=== PATIENT | male | born 1930 | race Caucasian/White ===

== ENCOUNTER 2016-05-02 13:51 | Observation (INO) | payer OTHER ==
[~2016-05-02] VITALS: Ht 170.2 cm; Wt 69.1 kg
[~2016-05-02 13:51] MED LIST: ADVAIR HFA120 INHALA IH; ALBUTEROL2.5 MG/3 M IH; ASPIR-TRIN325 M1 PO; ATROVENT 00.5 MG/2.5 AEROSOL; ATROVENT 00.5 MG/2.5 IH; AUGMENTIN875 MG PO; AZITHROMYCIN250 MG PO; AZITHROMYCIN500 M1 PO; CALCIUM 600 +1 EAC3 PO; CEFTIN250 MG PO; DUONEB 2.5-0.5 M3 ML AEROSOL; Diflucan PO; FLONASE16 G1 BOTH NARES; FLONASE16 G1 NS; FLOVENT 11120 INHALA IH; FLUCONAZOLE100 MG PO; Flagyl PO; Flonase BOTH NARES; Flora-Q,Risaquad PO; GABAPENTIN100 MG PO; LEVOFLOXACIN750 MG PO; MEDROL DOSEPAK4 MG PO; MONTELUKAST SOD10 MG PO; NEXIUM20 MG PO; NEXIUM40 MG PO; NIZORAL 2% CREA15 GM TP; OSTEO BI-FLEX1 EAC1 PO; OXYCODONE HCL5 MG PO; PANTOPRAZOLE SO40 MG PO; PREDNISONE10 MG PO; PREDNISONE5 MG PO; PREDNISONE50 MG PO; PROAIR HFA8.5 GM IH; PROTONIX40 MG PO; PROVENTIL,2.5 MG/3 M IH; Questran PO; SKELAXIN800 MG PO; SPIRIVA RESPIMAT4 GM IH; Tums,OsCal PO; Vancocin Oral Soluti PO; ZITHROMAX Z-PA250 MG PO; [UNRECOGNIZED DRUG - OTHER] PO
[2016-05-02 15:27] LABS: HEMATOCRIT 42.5 % (38.0-50.0); MCHC 32.9 G/DL (30.0-36.0); RBC DIS.WIDTH-CV 13.7 % (11.8-14.6); RBC DIS.WIDTH-SD 44.8 % (39-53); RED BLOOD COUNT 4.67 M/uL (4.00-5.50); WHITE BLOOD COUNT 7.2 K/uL (4.1-10.2)
[2016-05-02 15:32] LABS: MEAN PLAT.VOLUME 10.4 uM^3 (9.0-12.4)
[2016-05-02 15:33] LABS: PLATELET COUNT 307 K/uL (156-360)
[2016-05-02 15:37] LABS: CHLORIDE 104 mEq/L (99-109); POTASSIUM 4.4 mEq/L (3.7-5.4); SODIUM 137 mEq/L (136-147)
[2016-05-02 15:39] LABS: GLUCOSE 90 mg/dL (70-99)
[2016-05-02 15:40] LABS: ANION GAP 11 MEQ/L (2-14)
[2016-05-02 15:43] LABS: GFR ESTIMATE (CALCULATED) > 59 mL/min/
[2016-05-02 15:44] LABS: UREA NITROGEN (BUN) 13 mg/dL (9-23)
[2016-05-02 15:49] LABS: TROP-I INTERPRETATION NEGATIVE; TROPONIN-I 0.04 ng/mL (0.0-0.30)
[2016-05-02] MEDS ORDERED: OMEPRAZOLE40 M1 PO (18:11)
[2016-05-02 18:54] LABS: TROP-I INTERPRETATION NEGATIVE; TROPONIN-I 0.04 ng/mL (0.0-0.30)
[2016-05-02 20:45] VITALS: BP 129/81
[2016-05-03 00:14] VITALS: BP 114/68
[2016-05-03 01:44] LABS: TROP-I INTERPRETATION NEGATIVE; TROPONIN-I 0.02 ng/mL (0.0-0.30)
[2016-05-03 04:53] VITALS: BP 90/54
[2016-05-03 07:59] LABS: TROP-I INTERPRETATION NEGATIVE; TROPONIN-I < 0.01 ng/mL (0.0-0.30)
[2016-05-03 08:07] VITALS: BP 111/54
[2016-05-03] MEDS ORDERED: ZITHROMAX500 MG PO (10:19)
[2016-05-03] MEDS ORDERED: PREDNISONE10 MG PO (10:25)
[2016-05-03] MEDS ORDERED: OMEPRAZOLE40 M1 PO (11:15)
== END 2016-05-03 13:00 | disposition home or self-care (01) ==
LOC: EME 13:51 → 5WEST 17:55 → EDOF 17:55 → 5WEST 20:21
PROVIDERS: Hospitalist
DX: R07.89 Other chest pain (principal); J20.9 Acute bronchitis, unspecified; J45.901 Unspecified asthma with (acute) exacerbation; R94.31 Abnormal electrocardiogram [ECG] [EKG]; M19.90 Unspecified osteoarthritis, unspecified site; K21.9 Gastro-esophageal reflux disease without esophagitis; I48.91 Unspecified atrial fibrillation; G89.29 Other chronic pain; M54.40 Lumbago with sciatica, unspecified side; Z82.49 Family history of ischemic heart disease and other diseases of the circulatory system; Z80.3 Family history of malignant neoplasm of breast
CPT/HCPCS: 71020; 80048; 81003; 84484; 85027; 93005; 94640; 94640 76; 94644; 99202; 99281; 99285; G0378; J1644; J2930

== ENCOUNTER 2016-06-14 17:48 | Observation (INO) | payer OTHER ==
[~2016-06-14] VITALS: Ht 170.2 cm; Wt 68.2 kg
[~2016-06-14 17:48] MED LIST changes: +OMEPRAZOLE40 M1 PO; +ZITHROMAX500 MG PO
[2016-06-14 18:19] LABS: HEMATOCRIT 39.8 % (38.0-50.0); MCH 29.9 PG (29.0-34.0); MCHC 33.7 G/DL (30.0-36.0); MCV 88.8 FL (86-99); MEAN PLAT.VOLUME 10.4 uM^3 (9.0-12.4); PLATELET COUNT 253 K/uL (156-360); RBC DIS.WIDTH-CV 12.8 % (11.8-14.6); RBC DIS.WIDTH-SD 40.6 % (39-53); RED BLOOD COUNT 4.48 M/uL (4.00-5.50); WHITE BLOOD COUNT 8.8 K/uL (4.1-10.2)
[2016-06-14 18:34] LABS: CHLORIDE 106 mEq/L (99-109); POTASSIUM 3.8 mEq/L (3.7-5.4); SODIUM 139 mEq/L (136-147)
[2016-06-14 18:36] LABS: GLUCOSE 128 mg/dL (70-99)
[2016-06-14 18:37] LABS: ANION GAP 12 MEQ/L (2-14)
[2016-06-14 18:39] LABS: GFR ESTIMATE (CALCULATED) > 59 mL/min/
[2016-06-14 18:40] LABS: UREA NITROGEN (BUN) 16 mg/dL (9-23)
[2016-06-14 18:46] LABS: TROP-I INTERPRETATION NEGATIVE; TROPONIN-I 0.05 ng/mL (0.0-0.30)
[2016-06-14] MEDS ORDERED: VITAMIN D400 UNI1 PO (19:26)
[2016-06-14 21:41] LABS: HDL CHOLESTEROL 41 MG/DL (Desirable>=40); LDL CHOLESTEROL 118 mg/dL (Desirable<100); NON-HDL CHOLESTEROL 141 mg/dL (Desirable<160); SAMPLE HEMOLYSIS CHECK 0; SAMPLE ICTERIC CHECK 0; SAMPLE LIPEMIA CHECK 0; TOTAL CHOLESTEROL 182 mg/dL (Desirable<200); TRIGLYCERIDES 115 MG/DL (Normal: <150)
[2016-06-14 21:47] VITALS: BP 144/67
[2016-06-15] VITALS: BP 122/57
[2016-06-15 04:00] VITALS: BP 122/68
[2016-06-15 06:38] LABS: Estimated Average Glucose 128 mg/dL (70-123); HEMOGLOBIN A1c (GLYCOHEMOGLOB) 6.1 % HGB (Below 5.7)
[2016-06-15 07:44] VITALS: BP 144/66
[2016-06-15 12:05] VITALS: BP 126/60
[2016-06-15] MEDS ORDERED: LO-DOSE ASPIRIN81 M2 PO (15:38)
[2016-06-15] MEDS ORDERED: CLOPIDOGREL75 MG PO (15:38)
== END 2016-06-15 17:00 | disposition home or self-care (01) ==
LOC: EME 17:48 → EDOF 20:21 → 5WEST 21:14
PROVIDERS: Nurse Practitioner Family
DX: I65.21 Occlusion and stenosis of right carotid artery (principal); J44.1 Chronic obstructive pulmonary disease with (acute) exacerbation; I48.91 Unspecified atrial fibrillation; M54.16 Radiculopathy, lumbar region; J45.909 Unspecified asthma, uncomplicated; K21.9 Gastro-esophageal reflux disease without esophagitis; M19.90 Unspecified osteoarthritis, unspecified site
CPT/HCPCS: 70450; 70549; 70551; 71020; 80048; 80061; 83036; 84484; 85027; 93005; 93880; 99202; 99281; 99285; G0378

== ENCOUNTER 2016-06-20 08:07 | Observation (INO) | payer OTHER ==
[~2016-06-20] VITALS: Ht 170.2 cm; Wt 69.3 kg
[~2016-06-20 08:07] MED LIST changes: +CLOPIDOGREL75 MG PO; +LO-DOSE ASPIRIN81 M2 PO; +VITAMIN D400 UNI1 PO
[2016-06-20] MEDS ORDERED: ONDANSETRON HCL4 MG PO (08:31)
[2016-06-20] MEDS ORDERED: FLUCONAZOLE100 MG PO (08:31)
[2016-06-20 08:51] LABS: MCH 29.8 PG (29.0-34.0); MCHC 33.6 G/DL (30.0-36.0); MCV 88.8 FL (86-99); MEAN PLAT.VOLUME 10.2 uM^3 (9.0-12.4); PLATELET COUNT 237 K/uL (156-360); RBC DIS.WIDTH-CV 12.9 % (11.8-14.6); RBC DIS.WIDTH-SD 40.8 % (39-53); RED BLOOD COUNT 4.39 M/uL (4.00-5.50); WHITE BLOOD COUNT 6.6 K/uL (4.1-10.2)
[2016-06-20 08:57] LABS: BASOPHIL COUNT 0.1 K/uL (0-0.1); EOSINOPHIL (%) 26.6 % (0-5); EOSINOPHIL COUNT 1.8 K/uL (0-0.3); IMMATURE GRANULOCYTE (%) 0.2 % (0.0-0.7); IMMATURE GRANULOCYTE COUNT 0.1 K/uL; LYMPHOCYTE COUNT 1.2 K/uL (1.0-2.8); MONOCYTE (%) 13.4 % (3-12); MONOCYTE COUNT 0.9 K/uL (0-0.8); NEUTROPHIL (%) 40.3 % (45-76); NEUTROPHIL COUNT 2.7 K/uL (1.8-6.4)
[2016-06-20 09:00] LABS: INTER. NORMALIZED RATIO 1.1; PROTHROMBIN TIME 10.9 (9.2-11.2); PTT 28.4 (25-32)
[2016-06-20 09:01] LABS: CHLORIDE 106 mEq/L (99-109)
[2016-06-20 09:02] LABS: POTASSIUM 3.7 mEq/L (3.7-5.4); SODIUM 139 mEq/L (136-147)
[2016-06-20 09:03] LABS: GLUCOSE 115 mg/dL (70-99)
[2016-06-20 09:05] LABS: ANION GAP 9 MEQ/L (2-14)
[2016-06-20 09:07] LABS: GFR ESTIMATE (CALCULATED) > 59 mL/min/
[2016-06-20 09:08] LABS: UREA NITROGEN (BUN) 14 mg/dL (9-23)
[2016-06-20 09:11] LABS: TROP-I INTERPRETATION NEGATIVE; TROPONIN-I 0.04 ng/mL (0.0-0.30)
[2016-06-20] MEDS ORDERED: PLAVIX75 MG PO (10:59)
[2016-06-20] MEDS ORDERED: OMEPRAZOLE40 M1 PO (11:00)
[2016-06-20] MEDS ORDERED: PROAIR HFA8.5 GM IH (11:00)
[2016-06-20] MEDS ORDERED: ALLERGY RELIE15.8 ML BOTH NARES (11:01)
[2016-06-20] MEDS ORDERED: CALCIUM 500 +1 EACH PO (11:01)
[2016-06-20 13:08] VITALS: BP 149/68
[2016-06-20 16:10] VITALS: BP 121/56
[2016-06-20 18:23] LABS: TROP-I INTERPRETATION NEGATIVE; TROPONIN-I 0.06 ng/mL (0.0-0.30)
[2016-06-20 20:00] VITALS: BP 117/58
[2016-06-21] VITALS: BP 123/62
[2016-06-21 01:00] LABS: TROP-I INTERPRETATION NEGATIVE; TROPONIN-I 0.05 ng/mL (0.0-0.30)
[2016-06-21 04:38] VITALS: BP 114/64
[2016-06-21 07:24] VITALS: BP 137/80
[2016-06-21] MEDS ORDERED: GABAPENTIN100 MG PO (07:57)
== END 2016-06-21 09:22 | disposition home or self-care (01) ==
LOC: EME 08:07 → EDOF 11:01 → 5WEST 11:01 → EDOF 11:01 → 5WEST 13:15
PROVIDERS: Emergency Medicine; Hospitalist
DX: R20.2 Paresthesia of skin (principal); G62.9 Polyneuropathy, unspecified; I10 Essential (primary) hypertension; J45.909 Unspecified asthma, uncomplicated; Z66 Do not resuscitate; K21.9 Gastro-esophageal reflux disease without esophagitis; M62.838 Other muscle spasm; M54.16 Radiculopathy, lumbar region; I25.2 Old myocardial infarction; G89.29 Other chronic pain
CPT/HCPCS: 70450; 71010; 72141; 72148; 80048; 84484; 85025; 85610; 85730; 93005; 94640 76; 99202; 99281; 99285; G0378; J1170; J2930

== ENCOUNTER 2017-02-14 17:51 | Observation (INO) | payer OTHER ==
[~2017-02-14] VITALS: Ht 170.2 cm; Wt 74.4 kg
[~2017-02-14 17:51] MED LIST changes: +ALLERGY RELIE15.8 ML BOTH NARES; +CALCIUM 500 +1 EACH PO; +ONDANSETRON HCL4 MG PO; +PLAVIX75 MG PO
[2017-02-14 18:47] LABS: HEMATOCRIT 35.5 % (38.0-50.0); MCH 27.4 PG (29.0-34.0); MCHC 31.8 G/DL (30.0-36.0); MEAN PLAT.VOLUME 10.3 uM^3 (9.0-12.4); PLATELET COUNT 273 K/uL (156-360); RBC DIS.WIDTH-CV 14.8 % (11.8-14.6); RBC DIS.WIDTH-SD 47.2 % (39-53); RED BLOOD COUNT 4.13 M/uL (4.00-5.50)
[2017-02-14 19:11] LABS: CHLORIDE 100 mEq/L (99-109); POTASSIUM 4.2 mEq/L (3.7-5.4); SODIUM 137 mEq/L (136-147); TROP-I INTERPRETATION NEGATIVE; TROPONIN-I 0.04 ng/mL (0.0-0.30)
[2017-02-14 19:12] LABS: GLUCOSE 104 mg/dL (70-99)
[2017-02-14 19:14] LABS: ANION GAP 12 MEQ/L (2-14)
[2017-02-14 19:16] LABS: GFR ESTIMATE (CALCULATED) > 59 mL/min/
[2017-02-14 19:17] LABS: UREA NITROGEN (BUN) 22 mg/dL (9-23)
[2017-02-14 22:44] LABS: TOTAL BILIRUBIN 0.4 mg/dL (0.0-1.0)
[2017-02-14 22:45] LABS: ALKALINE PHOSPHATASE 86 IU/L (3-129)
[2017-02-14 22:47] LABS: DIRECT BILIRUBIN 0.2 mg/dL (0.0-0.3)
[2017-02-14 22:48] LABS: LIPASE 25 U/L (1.0-51.0)
[2017-02-15 03:12] VITALS: BP 135/65
[2017-02-15 05:47] LABS: TROP-I INTERPRETATION NEGATIVE; TROPONIN-I 0.05 ng/mL (0.0-0.30)
[2017-02-15 12:20] VITALS: BP 131/69
[2017-02-15] MEDS ORDERED: ADVAIR HFA120 INHALA IH (14:04)
[2017-02-15] MEDS ORDERED: OMEPRAZOLE40 M1 PO (14:04)
[2017-02-15] MEDS ORDERED: SINGULAIR10 MG PO (14:05)
[2017-02-15] MEDS ORDERED: GABAPENTIN100 MG PO (14:05)
[2017-02-15] MEDS ORDERED: VENTOLIN HFA18 GM IH (15:09)
[2017-02-15] MEDS ORDERED: PROTONIX40 MG PO (15:09)
== END 2017-02-15 15:53 | disposition home or self-care (01) ==
LOC: EME 17:51 → ENPENDDIS 02-15 → EDOF 02-15 01:16 → ENRESERV 02-15 01:19 → 5WEST 02-15 03:06
PROVIDERS: Physician Assistant Medical
DX: R07.89 Other chest pain (principal); R10.13 Epigastric pain; K29.60 Other gastritis without bleeding; J44.9 Chronic obstructive pulmonary disease, unspecified; I44.1 Atrioventricular block, second degree; I47.1 Supraventricular tachycardia; I49.3 Ventricular premature depolarization; I27.20 Pulmonary hypertension, unspecified; I10 Essential (primary) hypertension; E78.5 Hyperlipidemia, unspecified; N40.0 Benign prostatic hyperplasia without lower urinary tract symptoms; G62.9 Polyneuropathy, unspecified; K22.70 Barrett's esophagus without dysplasia; K44.9 Diaphragmatic hernia without obstruction or gangrene; K21.9 Gastro-esophageal reflux disease without esophagitis; K57.30 Diverticulosis of large intestine without perforation or abscess without bleeding; I65.29 Occlusion and stenosis of unspecified carotid artery; M46.92 Unspecified inflammatory spondylopathy, cervical region; M47.22 Other spondylosis with radiculopathy, cervical region; Z66 Do not resuscitate; Z87.828 Personal history of other (healed) physical injury and trauma; Z87.01 Personal history of pneumonia (recurrent); Z82.49 Family history of ischemic heart disease and other diseases of the circulatory system
CPT/HCPCS: 71020; 74176; 80048; 80076; 83690; 84484; 85027; 93005; 99281; 99285; C9113; G0378; J1644

== ENCOUNTER 2017-02-24 17:41 | Inpatient (IN) | payer OTHER ==
[~2017-02-24] VITALS: Ht 170.2 cm; Wt 74.2 kg
[~2017-02-24 17:41] MED LIST changes: +SINGULAIR10 MG PO; +VENTOLIN HFA18 GM IH
[2017-02-24 18:08] LABS: HEMATOCRIT 34.3 % (38.0-50.0); MCH 27.7 PG (29.0-34.0); MCHC 32.4 G/DL (30.0-36.0); MCV 85.5 FL (86-99); MEAN PLAT.VOLUME 11.1 uM^3 (9.0-12.4); PLATELET COUNT 237 K/uL (156-360); RBC DIS.WIDTH-CV 14.8 % (11.8-14.6); RBC DIS.WIDTH-SD 46.5 % (39-53); RED BLOOD COUNT 4.01 M/uL (4.00-5.50); WHITE BLOOD COUNT 8.9 K/uL (4.1-10.2)
[2017-02-24 18:16] LABS: CHLORIDE 102 mEq/L (99-109); INTER. NORMALIZED RATIO 1.3; POTASSIUM 4.2 mEq/L (3.7-5.4); PROTHROMBIN TIME 14.2 SEC (10.2-12.9)
[2017-02-24 18:17] LABS: SODIUM 139 mEq/L (136-147)
[2017-02-24 18:18] LABS: GLUCOSE 111 mg/dL (70-99)
[2017-02-24 18:19] LABS: PTT 30.8 SEC (25-37)
[2017-02-24 18:20] LABS: ANION GAP 11 MEQ/L (2-14)
[2017-02-24 18:22] LABS: GFR ESTIMATE (CALCULATED) > 59 mL/min/
[2017-02-24 18:23] LABS: UREA NITROGEN (BUN) 22 mg/dL (9-23)
[2017-02-24 18:28] LABS: TROP-I INTERPRETATION NEGATIVE; TROPONIN-I 0.04 ng/mL (0.0-0.30)
[2017-02-24] MEDS ORDERED: PROTONIX40 MG PO (20:01)
[2017-02-24] MEDS ORDERED: TYLENOL EXTRA500 MG PO (20:01)
[2017-02-24] MEDS ORDERED: ONE DAILY1 EAC3 PO (20:02)
[2017-02-24 21:01] LABS: TOTAL BILIRUBIN 0.5 mg/dL (0.0-1.0)
[2017-02-24 21:02] LABS: ALKALINE PHOSPHATASE 84 IU/L (3-129)
[2017-02-24 21:04] LABS: DIRECT BILIRUBIN 0.2 mg/dL (0.0-0.3)
[2017-02-24 21:05] LABS: LIPASE 27 U/L (1.0-51.0)
[2017-02-24 22:01] VITALS: BP 129/68
[2017-02-25] VITALS: BP 124/60
[2017-02-25 01:04] LABS: TROP-I INTERPRETATION NEGATIVE; TROPONIN-I 0.05 ng/mL (0.0-0.30)
[2017-02-25 06:46] LABS: HEMATOCRIT 34.9 % (38.0-50.0); MCH 28.2 PG (29.0-34.0); MCV 85.5 FL (86-99); MEAN PLAT.VOLUME 11.2 uM^3 (9.0-12.4); PLATELET COUNT 218 K/uL (156-360); RBC DIS.WIDTH-SD 46.7 % (39-53); RED BLOOD COUNT 4.08 M/uL (4.00-5.50); WHITE BLOOD COUNT 7.8 K/uL (4.1-10.2)
[2017-02-25 07:10] LABS: TROP-I INTERPRETATION NEGATIVE; TROPONIN-I 0.05 ng/mL (0.0-0.30)
[2017-02-25 07:14] LABS: ANION GAP 11 MEQ/L (2-14); CHLORIDE 101 MEQ/L (99-109); GFR ESTIMATE (CALCULATED) > 59 mL/min/; GLUCOSE 89 mg/dL (70-99); POTASSIUM 4.1 MEQ/L (3.7-5.4); SAMPLE HEMOLYSIS CHECK 0; SAMPLE ICTERIC CHECK 0; SAMPLE LIPEMIA CHECK 0; SODIUM 136 MEQ/L (136-147); UREA NITROGEN (BUN) 18 mg/dL (9-23)
[2017-02-25 09:08] VITALS: BP 118/59
[2017-02-25 13:08] VITALS: BP 116/70
[2017-02-25 16:29] VITALS: BP 106/52
[2017-02-25 19:00] VITALS: BP 112/71
[2017-02-26 00:25] VITALS: BP 112/60
[2017-02-26 04:30] VITALS: BP 108/67
[2017-02-26 08:55] VITALS: BP 135/60
[2017-02-26] MEDS ORDERED: FLAGYL500 MG PO (11:43)
[2017-02-26] MEDS ORDERED: CIPRO500 MG PO (11:45)
[2017-02-26 12:18] VITALS: BP 110/54
== END 2017-02-26 12:30 | disposition home or self-care (01) | DRG 392 ==
LOC: EME 17:41 → 5WEST 20:55 → EDOF 20:55 → ENRESERV 20:56 → 5WEST 21:51 → ENRESERV 02-25 12:57 → 5WEST 02-26 12:30
PROVIDERS: Emergency Medicine; Hospitalist
DX: K57.32 Diverticulitis of large intestine without perforation or abscess without bleeding (principal); J81.1 Chronic pulmonary edema; J84.9 Interstitial pulmonary disease, unspecified; I44.1 Atrioventricular block, second degree; I27.20 Pulmonary hypertension, unspecified; J44.9 Chronic obstructive pulmonary disease, unspecified; I10 Essential (primary) hypertension; E78.5 Hyperlipidemia, unspecified; I25.10 Atherosclerotic heart disease of native coronary artery without angina pectoris; K21.0 Gastro-esophageal reflux disease with esophagitis; K22.70 Barrett's esophagus without dysplasia; K44.9 Diaphragmatic hernia without obstruction or gangrene; Z87.01 Personal history of pneumonia (recurrent); Z87.19 Personal history of other diseases of the digestive system
CPT/HCPCS: 71020; 74174; 76705; 80048; 80076; 83690; 83880; 84484; 85027; 85610; 85730; 87493; 93005; 94640; 94640 76; 99202; 99281; 99285; G0378; J1644; J1940; J2270; J2543; J7050

== ENCOUNTER 2017-08-20 14:39 | Inpatient (IN) | payer OTHER ==
[~2017-08-20] VITALS: Ht 170.2 cm; Wt 68.9 kg
[~2017-08-20 14:39] MED LIST changes: +CIPRO500 MG PO; +FLAGYL500 MG PO; +ONE DAILY1 EAC3 PO; +TYLENOL EXTRA500 MG PO
[2017-08-20 16:13] LABS: HEMATOCRIT 35.1 % (38.0-50.0); HEMOGLOBIN 11.6 G/DL (12.5-16.6); MCH 27.3 PG (29.0-34.0); MCV 82.6 FL (86-99); PLATELET COUNT 261 K/uL (156-360); RBC DIS.WIDTH-CV 16.9 % (11.8-14.6); RBC DIS.WIDTH-SD 49.6 % (39-53); RED BLOOD COUNT 4.25 M/uL (4.00-5.50); WHITE BLOOD COUNT 7.5 K/uL (4.1-10.2)
[2017-08-20 16:25] LABS: ALBUMIN 3.4 g/dL (3.2-4.8); CHLORIDE 102 mEq/L (99-109); POTASSIUM 3.9 mEq/L (3.7-5.4); SODIUM 137 mEq/L (136-147)
[2017-08-20 16:27] LABS: GLUCOSE 103 mg/dL (70-99); TOTAL PROTEIN 6.7 g/dL (6.4-8.3)
[2017-08-20 16:29] LABS: TOTAL BILIRUBIN 2.6 mg/dL (0.0-1.0)
[2017-08-20 16:31] LABS: ALKALINE PHOSPHATASE 118 IU/L (3-129); CREATININE 0.9 mg/dL (0.6-1.3); GFR ESTIMATE (CALCULATED) > 59 mL/min/ (58.99-99999)
[2017-08-20 16:32] LABS: UREA NITROGEN (BUN) 19 mg/dL (9-23)
[2017-08-20 16:33] LABS: AST (GOT) 45 IU/L (2-34)
[2017-08-20 16:34] LABS: ALT (GPT) 38 IU/L (3-49); LIPASE 16 U/L (1.0-51.0)
[2017-08-20 16:35] LABS: TROP-I INTERPRETATION NEGATIVE; TROPONIN-I 0.05 ng/mL (0.0-0.30)
[2017-08-20 19:30] LABS: DIRECT BILIRUBIN 1.8 mg/dL (0.0-0.3)
[2017-08-20 20:35] LABS: APPEARANCE SL.HAZY ((CLEAR)); BILIRUBIN SMALL; BLOOD MODERATE; COLOR AMBER ((YELLOW)); GLUCOSE (STRIP) NEGATIVE; KETONES 5; LEUKOCYTES MODERATE; NITRITE NEGATIVE; PROTEIN (STRIP) >=500; SPECIFIC GRAVITY 1.032 (1.000-1.030)
[2017-08-20 20:52] LABS: BACTERIA RARE /HPF; EPITHELIAL CELLS RARE /HPF; HYALINE CASTS 0-5 /LPF; MUCUS 1+ /LPF; RED BLOOD CELLS 15-20 /HPF (0-5); WHITE BLOOD CELLS TNTC /HPF (0-5)
[2017-08-20 21:06] VITALS: BP 121/66
[2017-08-21 00:04] VITALS: BP 120/70
[2017-08-21 04:25] VITALS: BP 133/72
[2017-08-21 05:48] LABS: HEMATOCRIT 33.2 % (38.0-50.0); HEMOGLOBIN 10.7 G/DL (12.5-16.6); MCH 26.6 PG (29.0-34.0); MCHC 32.2 G/DL (30.0-36.0); MCV 82.6 FL (86-99); PLATELET COUNT 250 K/uL (156-360); RED BLOOD COUNT 4.02 M/uL (4.00-5.50)
[2017-08-21 06:19] LABS: ALBUMIN 2.8 G/DL (3.2-4.8); ALKALINE PHOSPHATASE 97 IU/L (3-129); ALT (GPT) 31 IU/L (3-49); AST (GOT) 40 IU/L (2-34); CHLORIDE 104 MEQ/L (99-109); CREATININE 0.8 MG/DL (0.6-1.3); GFR ESTIMATE (CALCULATED) > 59 mL/min/ (58.99-99999); GLUCOSE 84 mg/dL (70-99); POTASSIUM 4.2 MEQ/L (3.7-5.4); SODIUM 137 MEQ/L (136-147); TOTAL BILIRUBIN 1.8 MG/DL (0.0-1.0); TOTAL PROTEIN 5.3 G/DL (6.4-8.3); UREA NITROGEN (BUN) 20 mg/dL (9-23)
[2017-08-21 08:01] VITALS: BP 121/68
[2017-08-21] MEDS ORDERED: OMEPRAZOLE40 M1 PO (11:47)
[2017-08-21] MEDS ORDERED: VENTOLIN HFA18 GM IH (11:48)
[2017-08-21] MEDS ORDERED: ONE DAILY1 EAC3 PO (11:49)
[2017-08-21] MEDS ORDERED: LO-DOSE ASPIRIN81 M1 PO (11:49)
[2017-08-21] MEDS ORDERED: ADVAIR HFA120 INHALA IH (11:49)
[2017-08-21 11:53] VITALS: BP 125/73
[2017-08-21 15:11] LABS: TROP-I INTERPRETATION NEGATIVE; TROPONIN-I 0.04 ng/mL (0.0-0.30)
[2017-08-21 15:58] VITALS: BP 119/64
[2017-08-21 19:39] VITALS: BP 120/72
[2017-08-22 00:02] VITALS: BP 115/59
[2017-08-22 03:59] VITALS: BP 121/74
[2017-08-22 06:09] LABS: BASOPHIL (%) 0.7 % (0-1); BASOPHIL COUNT 0.1 K/uL (0-0.1); EOSINOPHIL (%) 1.4 % (0-5); EOSINOPHIL COUNT 0.1 K/uL (0-0.3); HEMATOCRIT 31.8 % (38.0-50.0); HEMOGLOBIN 10.3 G/DL (12.5-16.6); IMMATURE GRANULOCYTE (%) 0.7 % (0.0-0.7); LYMPHOCYTE (%) 9.6 % (15-42); LYMPHOCYTE COUNT 0.7 K/uL (1.0-2.8); MCH 26.8 PG (29.0-34.0); MCHC 32.4 G/DL (30.0-36.0); MCV 82.8 FL (86-99); MONOCYTE (%) 16.1 % (3-12); MONOCYTE COUNT 1.1 K/uL (0-0.8); NEUTROPHIL (%) 71.5 % (45-76); PLATELET COUNT 272 K/uL (156-360); RBC DIS.WIDTH-CV 16.9 % (11.8-14.6); RBC DIS.WIDTH-SD 49.1 % (39-53); RED BLOOD COUNT 3.84 M/uL (4.00-5.50)
[2017-08-22 06:28] LABS: CHLORIDE 100 MEQ/L (99-109); GFR ESTIMATE (CALCULATED) > 59 mL/min/ (58.99-99999); GLUCOSE 98 mg/dL (70-99); MAGNESIUM 1.9 mg/dl (1.3-2.7); POTASSIUM 3.7 MEQ/L (3.7-5.4); SODIUM 137 MEQ/L (136-147); UREA NITROGEN (BUN) 20 mg/dL (9-23)
[2017-08-22 07:11] VITALS: BP 124/68
[2017-08-22 12:02] VITALS: BP 128/72
[2017-08-22 19:49] VITALS: BP 111/57
[2017-08-22 21:32] VITALS: BP 192/89
[2017-08-23 00:37] VITALS: BP 92/55
[2017-08-23 03:30] VITALS: BP 102/56
[2017-08-23 06:07] LABS: BASOPHIL (%) 0.7 % (0-1); BASOPHIL COUNT 0.1 K/uL (0-0.1); EOSINOPHIL (%) 4.1 % (0-5); EOSINOPHIL COUNT 0.3 K/uL (0-0.3); HEMATOCRIT 31.5 % (38.0-50.0); HEMOGLOBIN 10.4 G/DL (12.5-16.6); IMMATURE GRANULOCYTE (%) 0.4 % (0.0-0.7); LYMPHOCYTE (%) 9.5 % (15-42); LYMPHOCYTE COUNT 0.7 K/uL (1.0-2.8); MCH 26.9 PG (29.0-34.0); MCV 81.4 FL (86-99); MONOCYTE (%) 14.9 % (3-12); MONOCYTE COUNT 1.1 K/uL (0-0.8); NEUTROPHIL (%) 70.4 % (45-76); NEUTROPHIL COUNT 5.4 K/uL (1.8-6.4); PLATELET COUNT 279 K/uL (156-360); RED BLOOD COUNT 3.87 M/uL (4.00-5.50); WHITE BLOOD COUNT 7.6 K/uL (4.1-10.2)
[2017-08-23 06:12] LABS: CHLORIDE 97 MEQ/L (99-109); GFR ESTIMATE (CALCULATED) > 59 mL/min/ (58.99-99999); GLUCOSE 94 mg/dL (70-99); POTASSIUM 4.1 MEQ/L (3.7-5.4); SODIUM 135 MEQ/L (136-147); UREA NITROGEN (BUN) 21 mg/dL (9-23)
[2017-08-23 08:16] VITALS: BP 118/55
[2017-08-23 15:49] VITALS: BP 99/50
[2017-08-23 19:38] VITALS: BP 113/61
[2017-08-23 23:27] VITALS: BP 110/51
[2017-08-24 01:49] LABS: C DIFF TOXIN NEGATIVE (NEGATIVE)
[2017-08-24 04:16] VITALS: BP 116/76
[2017-08-24 07:47] VITALS: BP 135/59
[2017-08-24 12:13] VITALS: BP 133/62
[2017-08-24 15:06] LABS: INTER. NORMALIZED RATIO 1.4
[2017-08-24 15:08] LABS: PTT 33.4 SEC (25-37)
[2017-08-24 16:20] VITALS: BP 130/68
[2017-08-24 20:25] VITALS: BP 126/58
[2017-08-24 23:43] VITALS: BP 100/58
[2017-08-25 03:43] VITALS: BP 118/58
[2017-08-25 06:53] LABS: CHLORIDE 97 MEQ/L (99-109); CREATININE 1.1 MG/DL (0.6-1.3); GFR ESTIMATE (CALCULATED) > 59 mL/min/ (58.99-99999); GLUCOSE 91 mg/dL (70-99); POTASSIUM 4.3 MEQ/L (3.7-5.4); SODIUM 133 MEQ/L (136-147); UREA NITROGEN (BUN) 21 mg/dL (9-23)
[2017-08-25 07:20] VITALS: BP 122/64
[2017-08-25 09:46] LABS: TYPE OF FLUID PLEURAL
[2017-08-25 10:33] LABS: LACTATE DEHYDROGENASE 203 IU/L (20-246)
[2017-08-25 10:35] LABS: GLUCOSE 141 mg/dL (70-99); TOTAL PROTEIN 6.4 G/DL (6.4-8.3)
[2017-08-25 10:47] LABS: BODY FLUID GLUCOSE 104 MG/DL; BODY FLUID LDH 62 IU/L; BODY FLUID PROTEIN < 3.0 G/DL
[2017-08-25 10:55] LABS: APPEARANCE SL. HAZY-COLORLESS; BODY FLUID EOSINOPHILS 2 % (0-25); BODY FLUID RBC'S < 1000 /MM^3 (0-100); BODY FLUID WBC'S 149 /MM^3 (0-500); MONONUCLEAR WBC'S 75 %; POLYNUCLEAR WBC'S 23 % (0-25)
[2017-08-25 11:17] VITALS: BP 129/60
[2017-08-25 15:58] VITALS: BP 115/71
[2017-08-25 19:23] VITALS: BP 99/54
[2017-08-25 23:38] VITALS: BP 94/54
[2017-08-26 03:38] VITALS: BP 111/55
[2017-08-26 07:44] VITALS: BP 136/74
[2017-08-26 08:45] LABS: BASOPHIL (%) 0.6 % (0-1); EOSINOPHIL (%) 5.9 % (0-5); EOSINOPHIL COUNT 0.4 K/uL (0-0.3); HEMATOCRIT 38.2 % (38.0-50.0); HEMOGLOBIN 12.2 G/DL (12.5-16.6); IMMATURE GRANULOCYTE (%) 0.5 % (0.0-0.7); LYMPHOCYTE (%) 10.2 % (15-42); LYMPHOCYTE COUNT 0.7 K/uL (1.0-2.8); MCH 26.2 PG (29.0-34.0); MCHC 31.9 G/DL (30.0-36.0); MCV 82.2 FL (86-99); NEUTROPHIL (%) 67.8 % (45-76); NEUTROPHIL COUNT 4.5 K/uL (1.8-6.4); PLATELET COUNT 342 K/uL (156-360); RBC DIS.WIDTH-CV 17.3 % (11.8-14.6); RBC DIS.WIDTH-SD 50.3 % (39-53); WHITE BLOOD COUNT 6.7 K/uL (4.1-10.2)
[2017-08-26 08:47] LABS: RED BLOOD COUNT 4.65 M/uL (4.00-5.50)
[2017-08-26 09:14] LABS: CHLORIDE 97 MEQ/L (99-109); CREATININE 0.9 MG/DL (0.6-1.3); GFR ESTIMATE (CALCULATED) > 59 mL/min/ (58.99-99999); POTASSIUM 4.3 MEQ/L (3.7-5.4); SODIUM 134 MEQ/L (136-147); UREA NITROGEN (BUN) 19 mg/dL (9-23)
[2017-08-26 09:18] LABS: GLUCOSE 101 mg/dL (70-99)
[2017-08-26 11:44] VITALS: BP 110/57
[2017-08-26 13:32] LABS: TROP-I INTERPRETATION NEGATIVE; TROPONIN-I 0.06 ng/mL (0.0-0.30)
[2017-08-26 17:33] VITALS: BP 110/72
[2017-08-26 20:00] VITALS: BP 148/58
[2017-08-27] VITALS (7 sets, daily range): BP systolic 95–109; BP diastolic 46–62
[2017-08-27 06:30] LABS: TROP-I INTERPRETATION NEGATIVE; TROPONIN-I 0.05 ng/mL (0.0-0.30)
[2017-08-28 03:33] VITALS: BP 92/59
[2017-08-28 08:10] VITALS: BP 110/72
[2017-08-28 12:11] VITALS: BP 103/57
[2017-08-28] MEDS ORDERED: LISINOPRIL5 MG PO (13:40)
[2017-08-28] MEDS ORDERED: MUCINEX600 MG PO (13:41)
[2017-08-28] MEDS ORDERED: K-DUR20 MEQ PO (13:41)
[2017-08-28] MEDS ORDERED: LOPERAMIDE2 MG PO (13:41)
[2017-08-28] MEDS ORDERED: FUROSEMIDE40 MG PO (13:41)
== END 2017-08-28 15:30 | disposition home health service (06) | DRG 291 ==
LOC: EME 14:39 → EDOF 19:08 → ENRESERV 19:13 → 5SOUTH 20:25
PROVIDERS: Emergency Medicine; Hospitalist; Internal Medicine; Internal Medicine Cardiovascular Disease; Internal Medicine Pulmonary Disease; Physician Assistant
PROC: 0W993ZZ Drainage of Right Pleural Cavity, Percutaneous Approach (ICD-10-PCS; principal; 2017-08-25)
DX: I11.0 Hypertensive heart disease with heart failure (principal); J15.9 Unspecified bacterial pneumonia; J44.0 Chronic obstructive pulmonary disease with (acute) lower respiratory infection; I50.21 Acute systolic (congestive) heart failure; F03.90 Unspecified dementia, unspecified severity, without behavioral disturbance, psychotic disturbance, mood disturbance, and anxiety; Z66 Do not resuscitate; I48.2 Chronic atrial fibrillation; D64.9 Anemia, unspecified; N40.0 Benign prostatic hyperplasia without lower urinary tract symptoms; K21.9 Gastro-esophageal reflux disease without esophagitis; I42.0 Dilated cardiomyopathy; I44.1 Atrioventricular block, second degree; I27.20 Pulmonary hypertension, unspecified; I50.82 Biventricular heart failure; I44.4 Left anterior fascicular block; E87.1 Hypo-osmolality and hyponatremia; R17 Unspecified jaundice; R09.02 Hypoxemia; E87.2 Acidosis
CPT/HCPCS: 71045; 71046; 71250; 74177; 76705; 76942; 80048; 80053; 81003; 82248; 82945; 82947 91; 83605; 83615; 83615 91; 83690; 83735; 83880; 84155; 84157; 84484; 85025; 85027; 85610; 85730; 87040; 87070; 87086; 87205; 87493; 88108; 89051; 92610 GN; 93005; 93306; 94640; 94640 76; 94760; 94799; 97530 GO; 97530 GP; 99202; 99281; 99285; J0456; J0696; J1644; J1940

== ENCOUNTER 2017-09-23 14:45 | Observation (INO) | payer OTHER ==
[~2017-09-23] VITALS: Ht 170.2 cm; Wt 62.3 kg
[~2017-09-23 14:45] MED LIST changes: +FUROSEMIDE40 MG PO; +K-DUR20 MEQ PO; +LISINOPRIL5 MG PO; +LO-DOSE ASPIRIN81 M1 PO; +LOPERAMIDE2 MG PO; +MUCINEX600 MG PO
[2017-09-23 15:18] LABS: BASOPHIL (%) 1.3 % (0-1); BASOPHIL COUNT 0.1 K/uL (0-0.1); EOSINOPHIL (%) 5.9 % (0-5); EOSINOPHIL COUNT 0.4 K/uL (0-0.3); HEMATOCRIT 38.3 % (38.0-50.0); HEMOGLOBIN 12.8 G/DL (12.5-16.6); IMMATURE GRANULOCYTE (%) 0.2 % (0.0-0.7); LYMPHOCYTE (%) 16.8 % (15-42); MCH 27.8 PG (29.0-34.0); MCHC 33.4 G/DL (30.0-36.0); MCV 83.3 FL (86-99); MONOCYTE COUNT 0.7 K/uL (0-0.8); NEUTROPHIL (%) 63.8 % (45-76); NEUTROPHIL COUNT 3.9 K/uL (1.8-6.4); PLATELET COUNT 254 K/uL (156-360); RBC DIS.WIDTH-CV 19.2 % (11.8-14.6); RBC DIS.WIDTH-SD 56.9 % (39-53); WHITE BLOOD COUNT 6.1 K/uL (4.1-10.2)
[2017-09-23 15:28] LABS: INTER. NORMALIZED RATIO 1.1
[2017-09-23 15:31] LABS: PTT 31.2 SEC (25-37)
[2017-09-23 15:35] LABS: ALBUMIN 3.7 g/dL (3.2-4.8)
[2017-09-23 15:36] LABS: CHLORIDE 100 mEq/L (99-109); POTASSIUM 4.6 mEq/L (3.7-5.4); SODIUM 134 mEq/L (136-147)
[2017-09-23 15:38] LABS: GLUCOSE 94 mg/dL (70-99); TOTAL PROTEIN 7.4 g/dL (6.4-8.3)
[2017-09-23 15:40] LABS: TOTAL BILIRUBIN 0.8 mg/dL (0.0-1.0)
[2017-09-23 15:41] LABS: ALKALINE PHOSPHATASE 118 IU/L (3-129); GFR ESTIMATE (CALCULATED) > 59 mL/min/ (58.99-99999)
[2017-09-23 15:43] LABS: AST (GOT) 31 IU/L (2-34); UREA NITROGEN (BUN) 31 mg/dL (9-23)
[2017-09-23 15:44] LABS: ALT (GPT) 21 IU/L (3-49)
[2017-09-23 15:45] LABS: TROP-I INTERPRETATION NEGATIVE; TROPONIN-I 0.03 ng/mL (0.0-0.30)
[2017-09-23] MEDS ORDERED: LASIX40 MG PO (17:54)
[2017-09-23] MEDS ORDERED: LISINOPRIL10 MG PO (17:54)
[2017-09-23] MEDS ORDERED: ALEVE220 MG PO (17:56)
[2017-09-23 20:55] LABS: HDL CHOLESTEROL 51 MG/DL (Desirable>=40); LDL CHOLESTEROL 144 mg/dL (Desirable<100); NON-HDL CHOLESTEROL 161 mg/dL (Desirable<160); TOTAL CHOLESTEROL 212 mg/dL (Desirable<200); TRIGLYCERIDES 84 MG/DL (Normal: <150)
[2017-09-23 21:56] VITALS: BP 110/75
[2017-09-23 23:56] VITALS: BP 93/54
[2017-09-24 03:16] VITALS: BP 99/57
[2017-09-24 08:00] VITALS: BP 108/56
[2017-09-24 13:04] VITALS: BP 104/55
== END 2017-09-24 16:50 | disposition home or self-care (01) ==
LOC: EME 14:45 → EDOF 19:51 → 4SOUTH 19:51 → EDOF 19:51 → ENRESERV 19:54 → 4SOUTH 21:38
PROVIDERS: Emergency Medicine
DX: R20.2 Paresthesia of skin (principal); I65.21 Occlusion and stenosis of right carotid artery; J44.9 Chronic obstructive pulmonary disease, unspecified; Z87.01 Personal history of pneumonia (recurrent); R91.8 Other nonspecific abnormal finding of lung field; I42.9 Cardiomyopathy, unspecified; E78.5 Hyperlipidemia, unspecified; K21.9 Gastro-esophageal reflux disease without esophagitis; Z79.82 Long term (current) use of aspirin; Z82.49 Family history of ischemic heart disease and other diseases of the circulatory system; M47.812 Spondylosis without myelopathy or radiculopathy, cervical region; N40.0 Benign prostatic hyperplasia without lower urinary tract symptoms; D64.9 Anemia, unspecified; F03.90 Unspecified dementia, unspecified severity, without behavioral disturbance, psychotic disturbance, mood disturbance, and anxiety; Z88.5 Allergy status to narcotic agent
CPT/HCPCS: 70450; 70551; 71046; 71250; 72125; 72128; 80053; 80061; 82948; 83036; 84484; 85025; 85610; 85730; 93005; 93880; 94640; 94640 76; 99202; 99281; 99285; G0378; J1644

== ENCOUNTER 2017-11-14 23:56 | Observation (INO) | payer OTHER ==
[~2017-11-14] VITALS: Ht 170.2 cm; Wt 66.8 kg
[~2017-11-14 23:56] MED LIST changes: +ALEVE220 MG PO; +LASIX40 MG PO; +LISINOPRIL10 MG PO
[2017-11-15 00:21] LABS: BASOPHIL (%) 0.7 % (0-1); BASOPHIL COUNT 0.1 K/uL (0-0.1); EOSINOPHIL (%) 7.8 % (0-5); EOSINOPHIL COUNT 1.1 K/uL (0-0.3); HEMATOCRIT 37.2 % (38.0-50.0); HEMOGLOBIN 12.5 G/DL (12.5-16.6); IMMATURE GRANULOCYTE (%) 0.3 % (0.0-0.7); LYMPHOCYTE (%) 10.3 % (15-42); LYMPHOCYTE COUNT 1.4 K/uL (1.0-2.8); MCH 29.6 PG (29.0-34.0); MCHC 33.6 G/DL (30.0-36.0); MCV 87.9 FL (86-99); MONOCYTE (%) 10.4 % (3-12); MONOCYTE COUNT 1.4 K/uL (0-0.8); NEUTROPHIL (%) 70.5 % (45-76); NEUTROPHIL COUNT 9.6 K/uL (1.8-6.4); PLATELET COUNT 240 K/uL (156-360); RBC DIS.WIDTH-CV 17.5 % (11.8-14.6); RBC DIS.WIDTH-SD 56.4 % (39-53); RED BLOOD COUNT 4.23 M/uL (4.00-5.50); WHITE BLOOD COUNT 13.6 K/uL (4.1-10.2)
[2017-11-15 00:31] LABS: INTER. NORMALIZED RATIO 1.1
[2017-11-15 00:34] LABS: PTT 27.5 SEC (25-37)
[2017-11-15 00:36] LABS: CHLORIDE 101 mEq/L (99-109); POTASSIUM 4.5 mEq/L (3.7-5.4); SODIUM 135 mEq/L (136-147)
[2017-11-15 00:38] LABS: GLUCOSE 98 mg/dL (70-99)
[2017-11-15 00:42] LABS: CREATININE 1.1 mg/dL (0.6-1.3); GFR ESTIMATE (CALCULATED) > 59 mL/min/ (58.99-99999); TROP-I INTERPRETATION NEGATIVE; TROPONIN-I 0.03 ng/mL (0.0-0.30)
[2017-11-15 00:43] LABS: UREA NITROGEN (BUN) 21 mg/dL (9-23)
[2017-11-15 06:23] VITALS: BP 112/56
[2017-11-15 07:23] LABS: TROP-I INTERPRETATION NEGATIVE; TROPONIN-I 0.04 ng/mL (0.0-0.30)
[2017-11-15 08:03] VITALS: BP 102/57
[2017-11-15] MEDS ORDERED: NITROSTAT0.4 MG SL (10:22)
[2017-11-15 11:18] VITALS: BP 103/51
[2017-11-15 12:11] LABS: TROP-I INTERPRETATION NEGATIVE; TROPONIN-I 0.03 ng/mL (0.0-0.30)
== END 2017-11-15 12:19 | disposition home or self-care (01) ==
LOC: EME 23:56 → EDOF 11-15 03:29 → ENRESERV 11-15 03:31 → CANRESERV 11-15 03:31 → ENRESERV 11-15 04:45 → 4SOUTH 11-15 06:15
PROVIDERS: Emergency Medicine; Hospitalist; Internal Medicine
DX: R07.9 Chest pain, unspecified (principal); I11.0 Hypertensive heart disease with heart failure; I50.9 Heart failure, unspecified; I44.1 Atrioventricular block, second degree; J44.9 Chronic obstructive pulmonary disease, unspecified; E78.5 Hyperlipidemia, unspecified; D64.9 Anemia, unspecified; N40.0 Benign prostatic hyperplasia without lower urinary tract symptoms; K21.9 Gastro-esophageal reflux disease without esophagitis; M51.36 Other intervertebral disc degeneration, lumbar region
CPT/HCPCS: 71045; 80048; 84484; 85025; 85610; 85730; 93005; 94640; 94799; 99281; 99284; G0378; J1644; J3010

== ENCOUNTER 2017-11-20 01:53 | Inpatient (IN) | payer OTHER ==
[2017-11-20] VITALS (21 sets, daily range): BP systolic 71–119; BP diastolic 35–71
[~2017-11-20] VITALS: Ht 170.2 cm; Wt 70.2 kg
[~2017-11-20 01:53] MED LIST changes: +NITROSTAT0.4 MG SL
[2017-11-20 02:15] LABS: BASOPHIL (%) 0.7 % (0-1); BASOPHIL COUNT 0.1 K/uL (0-0.1); EOSINOPHIL (%) 3.2 % (0-5); EOSINOPHIL COUNT 0.3 K/uL (0-0.3); HEMATOCRIT 36.3 % (38.0-50.0); HEMOGLOBIN 12.3 G/DL (12.5-16.6); IMMATURE GRANULOCYTE (%) 0.3 % (0.0-0.7); LYMPHOCYTE (%) 13.5 % (15-42); LYMPHOCYTE COUNT 1.2 K/uL (1.0-2.8); MCH 30.6 PG (29.0-34.0); MCHC 33.9 G/DL (30.0-36.0); MCV 90.3 FL (86-99); MONOCYTE (%) 15.2 % (3-12); MONOCYTE COUNT 1.4 K/uL (0-0.8); NEUTROPHIL (%) 67.1 % (45-76); PLATELET COUNT 289 K/uL (156-360); RBC DIS.WIDTH-CV 16.1 % (11.8-14.6); RBC DIS.WIDTH-SD 53.2 % (39-53); RED BLOOD COUNT 4.02 M/uL (4.00-5.50)
[2017-11-20 02:22] LABS: INTER. NORMALIZED RATIO 1.1
[2017-11-20 02:23] LABS: AMYLASE 60 IU/L (1-118); CHLORIDE 100 mEq/L (99-109); POTASSIUM 4.1 mEq/L (3.7-5.4); SODIUM 134 mEq/L (136-147)
[2017-11-20 02:25] LABS: GLUCOSE 108 mg/dL (70-99)
[2017-11-20 02:25] LABS: PTT 27.2 SEC (25-37)
[2017-11-20 02:28] LABS: SERUM ETHYL ALCOHOL < 10 mg/dL
[2017-11-20 02:29] LABS: CREATININE 1.1 mg/dL (0.6-1.3); GFR ESTIMATE (CALCULATED) > 59 mL/min/ (58.99-99999)
[2017-11-20 02:30] LABS: UREA NITROGEN (BUN) 20 mg/dL (9-23)
[2017-11-20 02:32] LABS: LIPASE 17 U/L (1.0-51.0)
[2017-11-20 02:36] LABS: TROP-I INTERPRETATION NEGATIVE; TROPONIN-I 0.03 ng/mL (0.0-0.30)
[2017-11-20 12:49] LABS: BASOPHIL (%) 0.3 % (0-1); EOSINOPHIL (%) 0.4 % (0-5); EOSINOPHIL COUNT 0.1 K/uL (0-0.3); HEMATOCRIT 35.8 % (38.0-50.0); HEMOGLOBIN 12.1 G/DL (12.5-16.6); IMMATURE GRANULOCYTE (%) 0.5 % (0.0-0.7); LYMPHOCYTE (%) 3.1 % (15-42); LYMPHOCYTE COUNT 0.4 K/uL (1.0-2.8); MCH 30.9 PG (29.0-34.0); MCHC 33.8 G/DL (30.0-36.0); MCV 91.3 FL (86-99); MONOCYTE (%) 11.9 % (3-12); MONOCYTE COUNT 1.6 K/uL (0-0.8); NEUTROPHIL (%) 83.8 % (45-76); NEUTROPHIL COUNT 11.3 K/uL (1.8-6.4); PLATELET COUNT 263 K/uL (156-360); RBC DIS.WIDTH-CV 15.9 % (11.8-14.6); RBC DIS.WIDTH-SD 53.8 % (39-53); RED BLOOD COUNT 3.92 M/uL (4.00-5.50); WHITE BLOOD COUNT 13.5 K/uL (4.1-10.2)
[2017-11-20 12:52] LABS: COMMENTS - BLOOD GASES +C; DEVICE NC; O2 FLOW 1 L/MIN; PCO2 34 mm Hg (35-45); PO2 92 mm Hg (80-100); SITE LR +A; TOTAL RESP RATE 28 resp/min; pH 7.45 (7.35-7.45)
[2017-11-20 12:53] LABS: BASE EXCESS 0 mEq/L (-3 to +3); BICARBONATE 23.6 mEq/L (22-26); METHEMOGLOBIN 1.4 % (0-1.5); O2 SATURATION (CALCULATED) 98.8 % (95-99)
[2017-11-20 13:04] LABS: ALBUMIN 3.4 g/dL (3.2-4.8)
[2017-11-20 13:05] LABS: TROP-I INTERPRETATION NEGATIVE; TROPONIN-I 0.02 ng/mL (0.0-0.30)
[2017-11-20 13:05] LABS: AMYLASE 60 IU/L (1-118); CHLORIDE 101 mEq/L (99-109); POTASSIUM 4.5 mEq/L (3.7-5.4); SODIUM 134 mEq/L (136-147)
[2017-11-20 13:07] LABS: GLUCOSE 140 mg/dL (70-99); TOTAL PROTEIN 6.8 g/dL (6.4-8.3)
[2017-11-20 13:09] LABS: TOTAL BILIRUBIN 1.4 mg/dL (0.0-1.0)
[2017-11-20 13:10] LABS: ALKALINE PHOSPHATASE 93 IU/L (3-129)
[2017-11-20 13:11] LABS: CREATININE 1.1 mg/dL (0.6-1.3); GFR ESTIMATE (CALCULATED) > 59 mL/min/ (58.99-99999)
[2017-11-20 13:12] LABS: AST (GOT) 15 IU/L (2-34); UREA NITROGEN (BUN) 19 mg/dL (9-23)
[2017-11-20 13:14] LABS: ALT (GPT) 13 IU/L (3-49); LIPASE 15 U/L (1.0-51.0)
[2017-11-20 14:23] LABS: APPEARANCE CLEAR ((CLEAR)); BILIRUBIN NEGATIVE; BLOOD MODERATE; COLOR YELLOW ((YELLOW)); GLUCOSE (STRIP) NEGATIVE; KETONES NEGATIVE; LEUKOCYTES SMALL; NITRITE NEGATIVE; PROTEIN (STRIP) 30; SPECIFIC GRAVITY 1.035 (1.000-1.030); UROBILINOGEN 0.2 MG/DL (0.2-1.0)
[2017-11-20 14:29] LABS: BACTERIA 1+ /HPF; EPITHELIAL CELLS RARE /HPF; MUCUS TRACE /LPF; UCUL ADDED? YES; WHITE BLOOD CELLS 15-20 /HPF (0-5)
[2017-11-20 14:56] LABS: APPEARANCE CLEAR ((CLEAR)); BILIRUBIN NEGATIVE; BLOOD MODERATE; COLOR YELLOW ((YELLOW)); GLUCOSE (STRIP) NEGATIVE; KETONES NEGATIVE; LEUKOCYTES TRACE; NITRITE NEGATIVE; PROTEIN (STRIP) NEGATIVE; SPECIFIC GRAVITY 1.023 (1.000-1.030); UROBILINOGEN 0.2 MG/DL (0.2-1.0)
[2017-11-20 15:24] LABS: BACTERIA RARE /HPF; EPITHELIAL CELLS NONE SEEN /HPF; MUCUS TRACE /LPF; UCUL ADDED? YES; WHITE BLOOD CELLS 15-20 /HPF (0-5)
[2017-11-20 15:28] LABS: BENZODIAZEPINES, URINE SCREEN POSITIVE (200 ng/mL)
[2017-11-20 19:20] LABS: TROP-I INTERPRETATION NEGATIVE; TROPONIN-I 0.04 ng/mL (0.0-0.30)
[2017-11-21] VITALS (16 sets, daily range): BP systolic 74–115; BP diastolic 28–61
[2017-11-21 01:28] LABS: TROP-I INTERPRETATION NEGATIVE; TROPONIN-I 0.03 ng/mL (0.0-0.30)
[2017-11-21 10:26] LABS: BASOPHIL (%) 0.5 % (0-1); BASOPHIL COUNT 0.1 K/uL (0-0.1); EOSINOPHIL (%) 1.3 % (0-5); EOSINOPHIL COUNT 0.1 K/uL (0-0.3); HEMATOCRIT 33.7 % (38.0-50.0); IMMATURE GRANULOCYTE (%) 0.4 % (0.0-0.7); LYMPHOCYTE (%) 8.4 % (15-42); LYMPHOCYTE COUNT 0.9 K/uL (1.0-2.8); MCH 30.6 PG (29.0-34.0); MCHC 32.6 G/DL (30.0-36.0); MCV 93.6 FL (86-99); MONOCYTE (%) 17.7 % (3-12); MONOCYTE COUNT 1.9 K/uL (0-0.8); NEUTROPHIL (%) 71.7 % (45-76); NEUTROPHIL COUNT 7.8 K/uL (1.8-6.4); PLATELET COUNT 258 K/uL (156-360); RBC DIS.WIDTH-CV 15.8 % (11.8-14.6); RBC DIS.WIDTH-SD 54.4 % (39-53); WHITE BLOOD COUNT 10.9 K/uL (4.1-10.2)
[2017-11-21 10:49] LABS: ALBUMIN 2.9 G/DL (3.2-4.8); ALKALINE PHOSPHATASE 80 IU/L (3-129); ALT (GPT) 9 IU/L (3-49); AST (GOT) 10 IU/L (2-34); CHLORIDE 99 MEQ/L (99-109); CREATININE 1.1 MG/DL (0.6-1.3); GFR ESTIMATE (CALCULATED) > 59 mL/min/ (58.99-99999); MAGNESIUM 2.1 mg/dl (1.3-2.7); PHOSPHORUS 3.1 mg/dL (2.5-4.9); POTASSIUM 4.1 MEQ/L (3.7-5.4); SODIUM 134 MEQ/L (136-147); TOTAL BILIRUBIN 1.1 MG/DL (0.0-1.0); UREA NITROGEN (BUN) 22 mg/dL (9-23)
[2017-11-21 10:50] LABS: GLUCOSE 98 mg/dL (70-99)
[2017-11-22] VITALS (7 sets, daily range): BP systolic 91–122; BP diastolic 50–58
[2017-11-22 05:49] LABS: HEMATOCRIT 30.6 % (38.0-50.0); HEMOGLOBIN 10.2 G/DL (12.5-16.6); MCH 30.6 PG (29.0-34.0); MCHC 33.3 G/DL (30.0-36.0); MCV 91.9 FL (86-99); PLATELET COUNT 263 K/uL (156-360); RBC DIS.WIDTH-CV 15.3 % (11.8-14.6); RED BLOOD COUNT 3.33 M/uL (4.00-5.50); WHITE BLOOD COUNT 9.7 K/uL (4.1-10.2)
[2017-11-22 06:14] LABS: CHLORIDE 99 MEQ/L (99-109); CREATININE 1.4 MG/DL (0.6-1.3); GFR ESTIMATE (CALCULATED) 51 mL/min/ (58.99-99999); GLUCOSE 109 mg/dL (70-99); PHOSPHORUS 2.9 mg/dL (2.5-4.9); POTASSIUM 4.5 MEQ/L (3.7-5.4); SODIUM 134 MEQ/L (136-147); UREA NITROGEN (BUN) 32 mg/dL (9-23)
[2017-11-22 11:53] LABS: APPEARANCE CLEAR ((CLEAR)); BILIRUBIN NEGATIVE; BLOOD MODERATE; COLOR YELLOW ((YELLOW)); GLUCOSE (STRIP) NEGATIVE; KETONES NEGATIVE; LEUKOCYTES MODERATE; NITRITE NEGATIVE; PROTEIN (STRIP) 30; SPECIFIC GRAVITY 1.019 (1.000-1.030)
[2017-11-22 12:01] LABS: BACTERIA RARE /HPF; EPITHELIAL CELLS NONE SEEN /HPF; MUCUS TRACE /LPF; RED BLOOD CELLS 15-20 /HPF (0-5); WHITE BLOOD CELLS TNTC /HPF (0-5)
[2017-11-22 14:08] LABS: CHLORIDE 102 MEQ/L (99-109); CREATININE 1.2 MG/DL (0.6-1.3); GFR ESTIMATE (CALCULATED) > 59 mL/min/ (58.99-99999); GLUCOSE 121 mg/dL (70-99); POTASSIUM 4.1 MEQ/L (3.7-5.4); SODIUM 135 MEQ/L (136-147); UREA NITROGEN (BUN) 31 mg/dL (9-23)
[2017-11-23 03:53] VITALS: BP 93/49
[2017-11-23 06:06] LABS: HEMOGLOBIN 9.5 G/DL (12.5-16.6); MCH 30.1 PG (29.0-34.0); MCHC 32.8 G/DL (30.0-36.0); MCV 91.8 FL (86-99); PLATELET COUNT 269 K/uL (156-360); RBC DIS.WIDTH-CV 14.8 % (11.8-14.6); RBC DIS.WIDTH-SD 50.5 % (39-53); RED BLOOD COUNT 3.16 M/uL (4.00-5.50); WHITE BLOOD COUNT 6.5 K/uL (4.1-10.2)
[2017-11-23 06:36] LABS: CHLORIDE 102 MEQ/L (99-109); CREATININE 0.9 MG/DL (0.6-1.3); GFR ESTIMATE (CALCULATED) > 59 mL/min/ (58.99-99999); GLUCOSE 104 mg/dL (70-99); PHOSPHORUS 2.7 mg/dL (2.5-4.9); POTASSIUM 4.2 MEQ/L (3.7-5.4); SODIUM 136 MEQ/L (136-147); UREA NITROGEN (BUN) 26 mg/dL (9-23)
[2017-11-23 06:59] VITALS: BP 121/58
[2017-11-23] MEDS ORDERED: LISINOPRIL5 MG PO (10:38)
[2017-11-23 10:59] VITALS: BP 93/51
[2017-11-23] MEDS ORDERED: NEXIUM 24HR20 M2 PO ×2 (11:58→12:02)
== END 2017-11-23 12:56 | disposition home health service (06) | DRG 287 ==
LOC: EME 01:53 → CATH 02:45 → EME 02:45 → 2SOUTH 03:15 → 4WEST 03:15 → ENRESERV 03:16 → 4WEST 03:19 → ENRESERV 11-21 12:24 → 4WEST 11-21 15:02 → ENRESERVTM 11-21 15:08 → 5SOUTH 11-21 17:49
PROVIDERS: Emergency Medicine; Hospitalist; Internal Medicine; Internal Medicine Cardiovascular Disease
PROC: B2111ZZ Fluoroscopy of Multiple Coronary Arteries using Low Osmolar Contrast (ICD-10-PCS; principal; 2017-11-20)
PROC: 4A023N7 Measurement of Cardiac Sampling and Pressure, Left Heart, Percutaneous Approach (ICD-10-PCS; principal; 2017-11-20)
PROC: B2151ZZ Fluoroscopy of Left Heart using Low Osmolar Contrast (ICD-10-PCS; principal; 2017-11-20)
PROC: 0DB68ZX Excision of Stomach, Via Natural or Artificial Opening Endoscopic, Diagnostic (ICD-10-PCS; 2017-11-21)
PROC: 0DB38ZX Excision of Lower Esophagus, Via Natural or Artificial Opening Endoscopic, Diagnostic (ICD-10-PCS; 2017-11-21)
DX: R07.89 Other chest pain (principal); I11.0 Hypertensive heart disease with heart failure; I50.22 Chronic systolic (congestive) heart failure; N17.9 Acute kidney failure, unspecified; I25.10 Atherosclerotic heart disease of native coronary artery without angina pectoris; K21.0 Gastro-esophageal reflux disease with esophagitis; K22.70 Barrett's esophagus without dysplasia; K29.70 Gastritis, unspecified, without bleeding; K44.9 Diaphragmatic hernia without obstruction or gangrene; K57.30 Diverticulosis of large intestine without perforation or abscess without bleeding; I95.9 Hypotension, unspecified; I27.20 Pulmonary hypertension, unspecified; I08.0 Rheumatic disorders of both mitral and aortic valves; J44.9 Chronic obstructive pulmonary disease, unspecified; I42.9 Cardiomyopathy, unspecified; I44.1 Atrioventricular block, second degree; I48.91 Unspecified atrial fibrillation; D64.9 Anemia, unspecified; E78.5 Hyperlipidemia, unspecified; F03.90 Unspecified dementia, unspecified severity, without behavioral disturbance, psychotic disturbance, mood disturbance, and anxiety; Z87.01 Personal history of pneumonia (recurrent); I25.2 Old myocardial infarction
CPT/HCPCS: 36600; 71045; 71275; 74174; 76705; 80048; 80048 91; 80053; 80306 90; 81003; 82150; 83605; 83690; 83735; 84100; 84145 90; 84484; 85025; 85025 91; 85027; 85610; 85730; 86850; 86900; 86901; 87040; 87086; 87641; 88305; 88342 TC; 93005; 93306; 94640; 94799; 99281; 99285; C1760; C1769; C1887; C1894; C9113; G0480; J0282; J0461; J1644; J1885; J2250; J2270; J3010; J7040

== ENCOUNTER 2017-12-11 22:32 | Observation (INO) | payer OTHER ==
[~2017-12-11] VITALS: Ht 170.2 cm; Wt 66.5 kg
[~2017-12-11 22:32] MED LIST changes: +NEXIUM 24HR20 M2 PO
[2017-12-11 23:03] LABS: HEMATOCRIT 29.2 % (38.0-50.0); MCH 31.3 PG (29.0-34.0); MCHC 34.2 G/DL (30.0-36.0); MCV 91.5 FL (86-99); RBC DIS.WIDTH-CV 12.3 % (11.8-14.6); RBC DIS.WIDTH-SD 41.3 % (39-53); RED BLOOD COUNT 3.19 M/uL (4.00-5.50); WHITE BLOOD COUNT 7.9 K/uL (4.1-10.2)
[2017-12-11 23:05] LABS: PLATELET COUNT 373 K/uL (156-360)
[2017-12-11 23:26] LABS: TROP-I INTERPRETATION NEGATIVE; TROPONIN-I 0.03 ng/mL (0.0-0.30)
[2017-12-11 23:33] LABS: CHLORIDE 100 mEq/L (99-109); POTASSIUM 4.7 mEq/L (3.7-5.4); SODIUM 131 mEq/L (136-147)
[2017-12-11 23:35] LABS: GLUCOSE 104 mg/dL (70-99)
[2017-12-11 23:39] LABS: CREATININE 1.2 mg/dL (0.6-1.3); GFR ESTIMATE (CALCULATED) > 59 mL/min/ (58.99-99999)
[2017-12-11 23:40] LABS: UREA NITROGEN (BUN) 23 mg/dL (9-23)
[2017-12-11 23:46] LABS: CREATINE KINASE 43 IU/L (1-294)
[2017-12-12 05:08] VITALS: BP 113/54
[2017-12-12 06:04] LABS: TROP-I INTERPRETATION NEGATIVE; TROPONIN-I 0.04 ng/mL (0.0-0.30)
[2017-12-12 07:23] VITALS: BP 110/54
[2017-12-12 11:32] VITALS: BP 105/53
[2017-12-12 12:47] LABS: HEMATOCRIT 33.1 % (38.0-50.0); MCH 31.1 PG (29.0-34.0); MCHC 33.2 G/DL (30.0-36.0); MCV 93.5 FL (86-99); PLATELET COUNT 372 K/uL (156-360); RBC DIS.WIDTH-CV 12.4 % (11.8-14.6); RBC DIS.WIDTH-SD 42.8 % (39-53); RED BLOOD COUNT 3.54 M/uL (4.00-5.50); WHITE BLOOD COUNT 5.8 K/uL (4.1-10.2)
[2017-12-12 13:06] LABS: TROP-I INTERPRETATION NEGATIVE; TROPONIN-I 0.04 ng/mL (0.0-0.30)
[2017-12-12 13:29] LABS: CHLORIDE 97 MEQ/L (99-109); CREATININE 1.1 MG/DL (0.6-1.3); GFR ESTIMATE (CALCULATED) > 59 mL/min/ (58.99-99999); GLUCOSE 92 mg/dL (70-99); POTASSIUM 4.7 MEQ/L (3.7-5.4); SODIUM 134 MEQ/L (136-147); UREA NITROGEN (BUN) 22 mg/dL (9-23)
[2017-12-12] MEDS ORDERED: LISINOPRIL2.5 MG PO (15:30)
[2017-12-12] MEDS ORDERED: SINGULAIR10 MG PO (16:29)
[2017-12-12] MEDS ORDERED: AZITHROMYCIN250 MG PO (16:38)
== END 2017-12-12 22:35 | disposition home or self-care (01) ==
LOC: EME 22:32 → EDOF 12-12 03:45 → 4SOUTH 12-12 04:55
PROVIDERS: Internal Medicine; Physician Assistant
PROC: B246ZZZ Ultrasonography of Right and Left Heart (ICD-10-PCS; principal; 2017-12-12)
DX: R07.9 Chest pain, unspecified (principal); I31.3 Pericardial effusion (noninflammatory); I44.1 Atrioventricular block, second degree; I42.9 Cardiomyopathy, unspecified; I21.3 ST elevation (STEMI) myocardial infarction of unspecified site; I25.10 Atherosclerotic heart disease of native coronary artery without angina pectoris; I34.0 Nonrheumatic mitral (valve) insufficiency; I27.20 Pulmonary hypertension, unspecified; I35.1 Nonrheumatic aortic (valve) insufficiency; I50.9 Heart failure, unspecified; E78.5 Hyperlipidemia, unspecified; K21.9 Gastro-esophageal reflux disease without esophagitis; N40.0 Benign prostatic hyperplasia without lower urinary tract symptoms; D64.9 Anemia, unspecified; I25.2 Old myocardial infarction; K22.70 Barrett's esophagus without dysplasia; J44.0 Chronic obstructive pulmonary disease with (acute) lower respiratory infection; R00.1 Bradycardia, unspecified; Z82.49 Family history of ischemic heart disease and other diseases of the circulatory system; Z79.82 Long term (current) use of aspirin; Z88.8 Allergy status to other drugs, medicaments and biological substances
CPT/HCPCS: 71045; 71250; 80048; 82550; 83880; 84484; 85027; 93005; 93306; 94640; 94760; 94799; G0378; J1644; J3010